=== PATIENT | male | born 1990 | race Caucasian/White ===

== ENCOUNTER 2016-09-26 14:32 | Inpatient (IN) | payer OTHER ==
--- NOTE | ~2016-09-26 | HP ---
Unit #: [id number] #: [id number] Patient: SIMÓN BLOUNT [id number] [facility] [address] [place] [address] [id number] MR#: [id number] NAME: SIMÓN BLOUNT ROOM: 16 Age: 26 Sex: M Admission Date: 09/26/2016 : 1990 Attending Physician: Arvin Ko M.D. Admitting Physician: Arvin Ko M.D. Primary Care Physician: Primary Care Physician No HISTORY AND PHYSICAL HISTORY OF PRESENT ILLNESS Simón is a 26 year old admitted to [address] [place] [address] because of his continued illicit drug use which includes IV methamphetamine. He has had other admissions to this facility for the same. PAST MEDICAL HISTORY 1. Long history of illicit substance abuse to include IV meth. 2. Hepatitis C. PAST SURGICAL HISTORY Nothing reported. ALLERGIES Penicillin, shell fish. SOCIAL HISTORY Smokes one-half packs per day. Denies alcohol. Admits to a long history of illicit substance abuse to include opioids and IV methamphetamines. FAMILY HISTORY Medically noncontributory. REVIEW OF SYSTEMS CONSTITUTIONAL: No fever or chills. HEENT: Denies any sore throat, ear pain or runny nose. CARDIOVASCULAR: Denies chest pain, irregular heart rhythm or palpitations. CHEST: Denies shortness of breath or cough. No hemoptysis. GASTROINTESTINAL: Denies nausea, vomiting, diarrhea or chronic constipation. ENDOCRINE: Denies history of increased thirst or urination. No recent significant weight loss or gain. GENITOURINARY: Denies dysuria, frequency, or hematuria. SKIN: Denies any rashes. HEMATOLOGIC: Denies history of increased bleeding or bruising. MUSCULOSKELETAL: Denies any hot, swollen joints. No generalized muscle pain. NEUROLOGIC: Denies problems with vision or speech. No frequent, severe headaches. No numbness, tingling or weakness in any extremities. Denies loss of bladder or bowel control. CURRENT MEDICATIONS 1. Zyprexa Zydis 10 mg q. 8 hours p.r.n. 2. Milk of Magnesia p.r.n. Unit #: [id number] #: [id number] Patient: SIMÓN BLOUNT 3. Maalox p.r.n. 4. Tylenol p.r.n. 5. Nicotine patch 14 mg q. day. PHYSICAL EXAMINATION GENERAL: Alert, well nourished. No apparent distress. VITAL SIGNS: Blood pressure 130/84, heart rate 92, respirations 16, and temperature 98.6. WEIGHT: 200. HEIGHT: 6 feet 1 inches. SKIN: Warm and dry without rash or lesion. HEENT: Normocephalic. TMs not viewed. Oral and nasal passages clear. Conjunctivae clear. PERRLA. EOMs intact. NECK: Supple without lymphadenopathy or thyromegaly. HEART: Regular rate and rhythm without murmur. LUNGS: Clear. ABDOMEN: Soft, nontender. : Not done. EXTREMITIES: No evidence of cyanosis, clubbing or edema. Moves all without focal deficit. NEUROLOGICAL: Grossly within normal limits. Cranial Nerves: II: Visual katz are intact. III, IV AND : Extraocular movements are intact. Pupils are equal, round and reactive to light. V: Facial sensation is grossly normal. VII: Facial movements and expression are normal. VIII: Auditory acuity grossly intact. IX, X: Uvula is midline. Phonation is normal. XI: Patient shrugs shoulders and turns head normally. XII: Tongue protrudes in the midline. Sensory and Motor Function: Sensory and motor sensation is grossly normal. Motor: moves all extremities well. Coordination: Gait is normal. Deep Tendon Reflexes: Intact. IMPRESSION Psychiatric admission. RECOMMENDATIONS PSYCHIATRIC: Per psychiatrist. MEDICAL: I see no contraindication to participate in this facility's activities. MEDICAL PROGNOSIS Good. MEDICAL CONDITION Stable. Dictated by... Joan Escobar P.A.-C. for Rhiannon Madrid/clyde TD: 09/27/2016 11:39 JOB #: [id number] Unit #: [id number] #: [id number] Patient: SIMÓN BLOUNT HISTORY AND PHYSICAL Page 1 of 1 X Joan Escobar HISTORY AND PHYSICAL
--- NOTE | ~2016-09-26 | DS ---
Unit #: [id number] #: [id number] Patient: ABRAN BLOUNT [id number] [facility] [address] [place] [address] [id number] MR#: [id number] NAME: ABRAN BLOUNT ROOM: [facility] Age: 26 Sex: M Admission Date: 09/26/2016 : 1990 Discharge Date: 09/28/2016 Attending Physician: Arvin Ko M.D. Primary Care Physician: Primary Care Physician No DISCHARGE SUMMARY REASON FOR ADMISSION The patient is a 26-year-old white male, admitted with methamphetamine-induced psychosis. HOSPITAL COURSE The patient was admitted initially to the [address] [place] [address] unit. Zyprexa Zydis was ordered on a p.r.n. basis, but the patient required no doses of this medication. His psychotic symptoms resolved rapidly as the effects of methamphetamine resolved and the patient was by 09/27/2016 bright, pleasant, and cooperative and agreed to transfer to the [facility] unit. He precipitated briefly on the activities on the [facility] unit and by 09/28/2016 exhibited no signs or symptoms of withdrawal. He requested discharge from the hospital stating that he would follow up with the auspices of community health resources in the [place], [place] area. As per his request, discharge was ordered. FINAL DIAGNOSES Methamphetamine use disorder with intoxication and perceptual disturbance, resolved. DISPOSITION ON DISCHARGE The patient is discharged on the following medications: None. FOLLOWUP Followup will take place through the auspices of community mental health resources. PROGNOSIS The patient's prognosis is considered fair. Dictated by... Arvin Ko M.D. JESSICA/brian TD: 09/28/2016 17:50 JOB #: [id number] Unit #: [id number] #: [id number] Patient: ABRAN BLOUNT DISCHARGE SUMMARY Page 1 of 1 X Arvin Ko MD X DISCHARGE SUMMARY
--- NOTE | ~2016-09-26 | PA ---
Unit #: [id number] #: [id number] Patient: ABRAN BLOUNT [id number] [facility] [address] [place] [address] [id number] MR#: [id number] NAME: ABRAN BLOUNT ROOM: [facility] Age: 26 Sex: M Admission Date: 09/26/2016 : 1990 Date of Assessment: 09/27/2016 Attending Physician: Arvin Ko M.D. Admitting Physician: Arvin Ko M.D. Primary Care Physician: Primary Care Physician No PSYCHIATRIC ASSESSMENT IDENTIFYING INFORMATION The patient is a 26-year-old white male admitted with a methamphetamine-induced psychosis. CHIEF COMPLAINT None given. INFORMANT Chart. The patient cannot be aroused for interview. HISTORY OF PRESENT ILLNESS The patient is a 26-year-old white male with a long history of polysubstance dependence. He reports that his substance of choice at this point is methamphetamine which he uses intravenously. The patient had reported to the [place] office 2 days ago but had left prior to completion of evaluation. He had returned yesterday reporting increasing paranoia feeling that he is being followed. He also reports that he has been confronting people on the street and is hearing beliefs that the government agencies are following him. The patient reportedly has no prior history of chemical dependence or other psychiatric treatment. He does suffer from hepatitis C and has a history of cocaine abuse. When seen today, the patient is sleeping soundly and cannot be aroused for interview. PAST PSYCHIATRIC HISTORY As above. PAST MEDICAL HISTORY The patient is reportedly hepatitis C positive. MEDICATIONS None. ALLERGIES Penicillin. FAMILY HISTORY Noncontributory. SOCIAL HISTORY The patient is presently homeless. He reports substance use as noted previously and is a smoker. Unit #: [id number] #: [id number] Patient: ABRAN BLOUNT MENTAL STATUS EXAMINATION Examination at this time reveals the patient to be a soundly sleeping white male appearing stated age. He is in no apparent physical distress at the time of examination. ASSETS AND LIABILITIES The patient's assets are to be assessed. Liabilities: Lack of resources. 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 TREATMENT PLAN The patient remains hospitalized for safety and stabilization. Suicide precautions remain in place at this time, and the patient is on special observation for psychosis. At this point, I have ordered Zydis 10 mg q. 8 hours p.r.n. agitation due to psychosis though the patient is required (1) __ medications (2) __ my expectation that the patient's symptoms should resolve as his methamphetamine intoxication resolves. We will then discuss transfer to one of our chemical dependence treatments and eventual referral for outpatient chemical dependence treatment. ESTIMATED LENGTH OF STAY 5 days. Dictated by... Arvin Ko M.D. Db TD: 09/27/2016 15:01 JOB #: [id number] PSYCHIATRIC ASSESSMENT Page 1 of 1 X Arvin Ko MD X PSYCHIATRIC ASSESSMENT
[2016-09-27 10:05] LABS: ALBUMIN SERUM 3.7 g/dL (3.5-5.0); BILIRUBIN,TOTAL 0.5 mg/dL (0.2-2.0); GLOM FILT RATE Estimated 103.4 mL/min (>60); POTASSIUM 4.1 mmol/L (3.5-5.1); PROTEIN TOTAL SERUM 6.8 g/dL (6.0-8.3)
[2016-09-27 10:06] LABS: BASOPHIL# 0.1 X10e3 (0-0.3); EOSINOPHIL# 0.2 X10e3 (0-0.7); EOSINOPHIL% 3.2 % (0.0-7.0); HEMATOCRIT 44.3 % (38.0-50.0); HEMOGLOBIN 14.7 gm/dL (13.0-16.0); LYMPHOCYTE# 1.6 X10e3 (1.0-3.5); LYMPHOCYTE% 27.6 % (17.0-45.0); MEAN CELL VOLUME 83.6 FL (83-96); MEAN CORPUSCULAR HEMOGLOBIN 27.7 PG (28-34); MEAN CORPUSCULAR HGB CONC 33.1 g/dL (30-36); MEAN PLATELET VOLUME 6.8 FL (6.5-11.5); MONOCYTE# 0.5 X10e3 (0-1.0); MONOCYTE% 8.6 % (3.0-12.0); NEUTROPHIL# 3.4 X10e3 (1.5-7.1); NEUTROPHIL% 59.6 % (40-75); PLATELET COUNT 243 X10e3 (140-420); RED CELL DISTRIBUTION WIDTH 12.4 % (11.0-15.5); WHITE BLOOD COUNT 5.7 X10e3 (4.0-10.5)
[2016-09-27 10:08] LABS: THYROID STIMULATING HORMONE 0.5 uIU/ml (0.34-5.60)
[2016-09-27 10:14] LABS: FREE THYROXIN (T4) 1.08 ng/dL (0.58-1.64)
[2016-09-27 10:49] LABS: DIFF IND NO
== END 2016-09-28 14:00 | disposition home or self-care (01) | DRG 897 ==
LOC: P1S 14:32 → P1E 09-27 15:21
PROVIDERS: Specialist
DX: F15.122 Other stimulant abuse with intoxication with perceptual disturbance (principal); R45.851 Suicidal ideations; Z88.0 Allergy status to penicillin; Z91.013 Allergy to seafood; F17.200 Nicotine dependence, unspecified, uncomplicated; B19.20 Unspecified viral hepatitis C without hepatic coma
CPT/HCPCS: 80053; 84439; 84443; 85025